=== PATIENT | female | born 2000 | race Caucasian/White ===

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

== ENCOUNTER 2021-02-01 16:49 | Emergency (ER) | payer SELFPAY ==
[2021-02-01 16:50] VITALS: PULSE 72; RESP 16; TEMP 36.7; O2SAT 100; BMI 38.6
--- NOTE | 2021-02-01 16:58 | ECG_ITS ---
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
[2021-02-01 17:33] LABS: Add Urine Microscopic? NO; Charge for UA Resulting for Rev
[2021-02-01 17:49] VITALS: BP 129/76; PULSE 69; RESP 18; O2SAT 100
[2021-02-01 17:50] LABS: Urine Appearance Clear (CLEAR); Urine Color Yellow (Yellow)
[2021-02-01] MEDS: iohexol 350 mg/mL 100 mL Btl IV (17:50)
[2021-02-01 17:51] LABS: Bilirubin Urine Neg (Negative); Blood Urine Neg (Negative); Glucose Urine UA Norm (Normal); Ketones Urine Negative (Negative); Leukocyte Esterase Urine Negative (Negative); Nitrate Urine Negative (Negative); Protein Urine Neg (Negative); Urobilinogen Urine Norm (Negative); pH Urine 7 (5-7)
[2021-02-01 17:54] LABS: Amphetamines Screen Urine Negative (Negative); Barbiturates Screen Urine Negative (Negative); Benzodiazepines Screen Urine Negative (Negative); Cocaine Screen Urine Negative (Negative); Opiate Screen Urine Negative (Negative); PCP Screen Urine Negative (Negative); THC Screen Urine Positive (Negative)
[2021-02-01 18:00] LABS: Basophils # 0.1 10^3/uL (0.0-0.1); Basophils % 0.5 %; Eosinophils # 0.1 10^3/uL (0.0-0.8); Eosinophils % 0.4 %; Hematocrit 37.2 % (37.0-47.0); Hemoglobin 11.5 g/dL (11.5-15.3); Lymphocytes # 2.1 10^3/uL (1.5-6.5); Lymphocytes % 15.6 %; Mean Corpuscular HGB Conc 30.9 g/dL (30.0-36.0); Mean Corpuscular Hemoglobin 27.4 pg (28.0-34.0); Mean Corpuscular Volume 88.6 fL (81-99); Mean Platelet Volume 10.3 fL (7.4-10.4); Monocytes # 0.9 10^3/uL (0.2-0.9); Monocytes % 6.7 %; Neutrophils # 10.11 10^3/uL (1.8-8.0); Neutrophils % 76.4 %; Nucleated Red Blood Cells % 0 %; Platelet Count 283 10^3/cmm (130-400); Red Cell Distribution Width 13.2 % (12.1-15.1); White Blood Count 13.2 10^3/uL (4.5-13.0)
[2021-02-01 18:02] VITALS: BP 128/78; PULSE 64; RESP 18; O2SAT 100
[2021-02-01 18:31] LABS: HCG, Serum Qual Negative (Negative)
[2021-02-01 18:40] VITALS: BP 137/77; PULSE 62; RESP 20; O2SAT 100
[2021-02-01 18:49] LABS: Alanine Aminotransferase 11 U/L (0-33); Albumin Level 3.7 g/dL (3.5-5.2); Alkaline Phosphatase 48 IU/L (35-105); Anion Gap 11.9 (5-19); Aspartate Amino Transferase 17 U/L (0-32); Blood Urea Nitrogen 8 mg/dL (6-20); Calcium 8.4 mg/dL (8.5-10.5); Carbon Dioxide 22 mmol/L (22-29); Chloride 107 mmol/L (98-107); Globulin 2.1 g/dL (1.3-4.6); Glomerular Filtration Rate 128.8 mL/min (90-130); Glucose 82 mg/dL (65-115); Osmolality Calculated 281 mOsm/kg (285-295); Potassium 3.9 mmol/L (3.5-5.1); Sodium 137 mmol/L (136-145); Total Bilirubin 0.6 mg/dL (0.15-1.2); Total Protein 5.8 g/dL (6.6-8.7)
[2021-02-01 18:50] LABS: Alcohol Level < 10 mg/dL (0-10)
--- NOTE | 2021-02-01 19:12 | ECG_ITS ---
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 Measurements Intervals [place] Rate: 62 P: -15 [place]: 130 QRS: 7 QRSD: 81 T: 14 QT: 393 QTc: 400 Interpretive Statements SINUS RHYTHM WITH OCCASIONAL SUPRAVENTRICULAR PREMATURE COMPLEXES and extreme sinus arrhythmia Compared to ECG 02/01/2021 17:08:20 Electronically Signed On 02-02-2021 20:02:08 CDT by Eliceo Plata M.D. [id number]
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
[2021-02-01 19:41] VITALS: BP 120/74; PULSE 79; RESP 18; O2SAT 100
--- NOTE | 2021-02-01 19:44 | PC.NURSE ---
cspine precautions removed per physician
[2021-02-01 20:25] VITALS: BP 112/72; PULSE 78; RESP 16; O2SAT 100
--- NOTE | 2021-02-02 15:46 | PC.SOCIAL ---
Spoke with cardiology clinic and provided patient information along with provider name and reason for referral. They will get patient scheduled and call patient with date and time.
--- NOTE | 2021-02-02 15:57 | PC.SOCIAL ---
Called Cardiology and provided information for ED referral for patient by Dr Berger for sinus arrhythmia. They will review and call patient.
--- NOTE | 2021-02-16 14:29 | DCPLANNER ---
flight manager called [facility] to confirm if an appointment had been scheduled for patient. flight manager spoke with Arsh, and was told that when the clinic called patient to schedule follow up appointment, that patient declined the appointment at this time due to no insurance. flight manager was told that patient was advised that the hospital had financial rep that patient could apply for, applications were mailed to patient. Patient stated that she would apply for the financial rep and if she was approved than patient would call heart care and will schedule an appointment.
== END 2021-02-01 20:15 | disposition home or self-care (01) ==
PROVIDERS: Emergency Provider Family Medicine
DX: S13.4XXA Sprain of ligaments of cervical spine, initial encounter (principal); S29.012A Strain of muscle and tendon of back wall of thorax, initial encounter; I49.8 Other specified cardiac arrhythmias; V89.2XXA Person injured in unspecified motor-vehicle accident, traffic, initial encounter
CPT/HCPCS: 70450; 71275; 72125; 74174; 80053; 80306; 80307; 81003; 84703; 85025; 93005; 99284; Q9967

== ENCOUNTER → 2021-02-18 15:21 | Outpatient (BNVA) | payer OTHER, SELFPAY | PROVIDERS: Visit Provider Nurse Practitioner Family | DX: J06.9 Acute upper respiratory infection, unspecified (principal); Z20.822 Contact with and (suspected) exposure to COVID-19 | CPT/HCPCS: 87635 ==

== ENCOUNTER → 2021-08-24 00:01 | Outpatient (BNVA) | payer OTHER, SELFPAY | PROVIDERS: Visit Provider Psychiatry & Neurology Psychiatry | DX: F33.1 Major depressive disorder, recurrent, moderate (principal); F41.1 Generalized anxiety disorder; Z79.899 Other long term (current) drug therapy; Z03.89 Encounter for observation for other suspected diseases and conditions ruled out | CPT/HCPCS: 80053; 80061; 83036; 84443; 85025 ==

== ENCOUNTER 2023-06-29 16:56 | Emergency (ER) | payer SELFPAY ==
--- NOTE | 2023-06-29 17:17 | ED_ITS ---
Documented by User: YG Quezada 06/29/23 20:36 HPI - Fever General: Chief Complaint: General Medical Stated Complaint: swollen throat Time Seen by Provider: 06/29/23 17:14 History of Present Illness: Patient is a 23-year-old female who presents to the emergency department for evaluation of a sore throat. Patient reports that her symptoms started yesterday and has continued to progress since onset. Patient currently rates her pain as a 7 out of 10 in severity that she describes as a sharp/stabbing sensation. Pain is exacerbated with eating and drinking. Patient also endorses bilateral ear pain. Admits to feeling congested but denies rhinorrhea. She denies current shortness of breath, drooling, throat swelling, painful tongue movements, cough, chest pain, palpitations, fever, chills, headache, or any other associated symptoms. No other complaints at this time. Associated symptoms: Reports nasal congestion; Deny abdominal pain, flank pain, chills, chest pain, diarrhea, dysuria, extremity pain, nausea or vomiting Review of Systems Const: Denies: fever(s) or chills Eyes: Denies: change in vision or blurry vision ENMT: Reports: throat pain, enlarged tonsils, ear or mastoid pain and nasal congestion; Denies: hoarseness, dental pain, ear discharge or nasal discharge Card: Denies: chest pain or palpitations Resp: Denies: productive cough, non-productive cough or wheezing GI: Denies: abdominal pain, nausea, vomiting, diarrhea or constipation : Denies: flank pain, difficulty voiding, dysuria or hematuria Musc: Denies: neck pain, back pain or extremity pain Skin/Breast: Denies: rash Physical Exam Const: COMMON NORMALS: no acute distress, patient oriented x3 and alert HENMT: COMMON NORMALS: normocephalic and atraumatic HEAD & SCALP: normocephalic and atraumatic OTHER: Posterior oropharynx is erythematous with mild tonsillar swelling and exudates noted bilaterally. Posterior oropharynx is patent. No evidence of retropharyngeal abscess or peritonsillar abscess. No evidence of Andrea's angina. Bilateral tympanic membranes pearly senior without evidence of effusion or hemotympanum. No evidence of otitis media or otitis externa. No evidence of mastoiditis bilaterally. Eye: COMMON NORMALS: Equal, round and reactive pupils present, EOMs intact bilaterally, conjunctivae normal and no scleral icterus CONJUNCTIVA: Yes conjunctivae normal PUPIL: Yes Equal, round and reactive pupils present Neck/C-Spine: COMMON NORMALS: full ROM Chest: COMMONS NORMALS: normal inspection of the chest Resp: COMMON NORMALS: normal respiratory effort, No retractions, No use of ac cessory muscles and clear to auscultation bilaterally AUSCULTATION: clear to auscultation bilaterally Cardio: COMMON NORMALS: regular rhythm, No gallops present (Cardio), No clicks present (Cardio), No murmurs present (Cardio) and No rub (Cardio) RATE: tachycardic RHYTHM: regular rhythm GI: COMMON NORMALS: Normal to inspection, nondistended, normoactive bowel sounds present, Soft to palpation and non-tender PALPATION: Yes Soft to palpation Neuro: COMMON NORMALS: patient oriented x3 SENSORIUM/ORIENTATION: Yes alert Skin: COMMON NORMALS: no rashes or lesions noted GENERAL SKIN EXAM: no rashes or lesions noted Course Vital Signs: Vital signs: Vital Signs Temperature 98.3 F 06/29/23 18:11 Pulse Rate 110 H 06/29/23 20:37 Respiratory Rate 18 06/29/23 18:11 Blood Pressure 120/78 06/29/23 20:37 Pulse Oximetry 97 06/29/23 20:37 Oxygen Delivery Me thod Room Air 06/29/23 20:30 MDM - Fever Medical Decision Making Patient is a 23-year-old female who presents to the emergency department for evaluation of a sore throat. On physical examination patient is nontoxic and in no acute distress. Patient is afebrile. Posterior oropharynx is erythematous with mild tonsillar swelling and exudates noted bilaterally. Posterior oropharynx is patent. No evidence of retropharyngeal abscess or peritonsillar abscess. No evidence of Andrea's angina. Bilateral tympanic membranes pearly senior without evidence of effusion or hemotympanum. No evidence of otitis media or otitis externa. No evidence of mastoiditis bilaterally. Rapid strep negative, culture currently pending. Given the patient's exam and increasing incidence of strep B I will treat for possible streptococcal infection. Patient was given a dose of viscous lidocaine in the emergency department. Patient stated improvement of symptoms after medication administration. See handout over generalized instructions. Increase oral hydration. A prescription amoxicillin was sent to her pharmacy be picked up. Take medication as prescribed. First dose given in the emergency department. Tylenol and Motrin as needed for fever and comfort. Call your primary care provider tomorrow with an update of your symptoms and schedule appointment for further management/evaluation. Return to the emergency department for any rapid or worsening symptoms to include but not limited to throat swelling, excessive drooling, difficulty breathing, difficulty swallowing, uncontrollable fevers, lightheadedness, dizziness, or as needed. Patient stated understanding of all discharge instructions was agreeable to the plan of care. Lab Data Laboratory Results Group A Strep Rapid Negative (Negative) 06/29/23 19:23 No radiology studies performed this visit Discharge Plan Discharge Patient Disposition: Home Clinical Impression: Acute pharyngitis Condition: Stable Prescriptions: New amoxicillin 500 mg capsule 500 mg PO BID 10 Days Qty: 20 0RF No Action fluoxetine 20 mg capsule 20 mg PO DAILY 30 Days Qty: 30 3RF ondansetron 8 mg tablet,disintegrating 8 mg PO Q8H 5 Days Qty: 15 0RF Discharge Orders: Discharge ED (Routine); Ordered 06/29/23 Ordered By: Campos Vela Patient Instructions: Pharyngitis (ED) Activity Restrictions/Additional Instructions: See handout over generalized instructions. Increase oral hydration. A prescription amoxicillin was sent to her pharmacy be picked up. Take medication as prescribed. First dose given in the emergency department. Tylenol and Motrin as needed for fever and comfort. Call your primary care provider tomorrow with an update of your symptoms and schedule appointment for further management/evaluation. Return to the emergency department for any rapid or worsening symptoms to include but not limited to throat swelling, excessive drooling, difficulty breathing, difficulty swallowing, uncontrollable fevers, lightheadedness, dizziness, or as needed. Coding Level of Care Code ED Mathematical Scientist for Chg Fwd Documented by User: Tyler Mike DO 06/29/23 22:21 HPI - Fever General: Chief Complaint: General Medical Stated Complaint: swollen throat Time Seen by Provider: 06/29/23 17:14 Course Vital Signs: Vital signs: Vital Signs Temperature 98.3 F 06/29/23 18:11 Pulse Rate 110 H 06/29/23 20:37 Respiratory Rate 18 06/29/23 18:11 Blood Pressure 120/78 06/29/23 20:37 Pulse Oximetry 97 06/29/23 20:37 Oxygen Delivery Me thod Room Air 06/29/23 20:30 MDM - Fever Medical Decision Making Patient is a 23-year-old female who presents to the emergency department for ben luation of a sore throat. On physical examination patient is nontoxic and in no acute distress. Patient is afebrile. Posterior oropharynx is erythematous with mild tonsillar swelling and exudates noted bilaterally. Posterior oropharynx is patent. No evidence of retropharyngeal abscess or peritonsillar abscess. No evidence of Andrea's angina. Bilateral tympanic membranes pearly senior without e vidence of effusion or hemotympanum. No evidence of otitis media or otitis externa. No evidence of mastoiditis bilaterally. Rapid strep negative, culture currently pending. Given the patient's exam and increasing incidence of strep B I will treat for possible streptococcal infection. Patient was given a dose of viscous lidocaine in the emergency department. Patient stated improvement of symptoms after medication administration. See handout over generalized instructions. Increase oral hydration. A prescription amoxicillin was sent to her pharmacy be picked up. Take medication as prescribed. First dose given in the emergency department. Tylenol and Motrin as needed for fever and comfort. Call your primary care provider tomorrow with an update of your symptoms and schedule appointment for further management/evaluation. Return to the emergency department for any rapid or worsening symptoms to include but not limited to throat swelling, excessive drooling, difficulty breathing, difficulty swallowing, uncontrollable fevers, lightheadedness, dizziness, or as needed. Patient stated understanding of all discharge instructions was agreeable to the plan of care. This patient was originally seen by Mr. Mirian PA-C.? I agree with his history, evaluation, and treatment. Lab Data Laboratory Results Group A Strep Rapid Negative (Negative) 06/29/23 19:23 Discharge Plan Discharge Patient Disposition: Home Clinical Impression: Acute pharyngitis Condition: Stable Prescriptions: New amoxicillin 500 mg capsule 500 mg PO BID 10 Days Qty: 20 0RF No Action fluoxetine 20 mg capsule 20 mg PO DAILY 30 Days Qty: 30 3RF ondansetron 8 mg tablet,disintegrating 8 mg PO Q8H 5 Days Qty: 15 0RF Discharge Orders: Discharge ED (Routine); Ordered 06/29/23 Ordered By: Campos Vela Patient Instructions: Pharyngitis (ED) Activity Restrictions/Additional Instructions: See handout over generalized instructions. Increase oral hydration. A prescription amoxicillin was sent to her pharmacy be picked up. Take medication as prescribed. First dose given in the emergency department. Tylenol and Motrin as needed for fever and comfort. Call your primary care provider tomorrow with an update of your symptoms and schedule appointment for further management/evaluation. Return to the emergency department for any rapid or worsening symptoms to include but not limited to throat swelling, excessive drooling, difficulty breathing, difficulty swallowing, uncontrollable fevers, lightheadedness, dizziness, or as needed. Coding Level of Care Code ED Mathematical Scientist for Shraddha Mckenzie
[2023-06-29 18:11] VITALS: BP 118/78; PULSE 125; RESP 18; TEMP 36.8; O2SAT 97; BMI 36.0
[2023-06-29 18:25] VITALS: BP 118/70; PULSE 104; O2SAT 100
[2023-06-29 18:46] VITALS: BP 116/80; PULSE 108; O2SAT 99
[2023-06-29] MEDS: lidocaine 2% viscous 15 mL UDC 5 ML MUCOUS MEM (19:19)
[2023-06-29 19:48] LABS: Rapid Strep A Test Negative (Negative)
[2023-06-29 20:30] VITALS: BP 95/67; PULSE 106; O2SAT 96
[2023-06-29 20:37] VITALS: BP 120/78; PULSE 110; O2SAT 97
== END 2023-06-29 20:41 | disposition home or self-care (01) ==
PROVIDERS: Emergency Provider Physician Assistant
DX: J02.9 Acute pharyngitis, unspecified (principal)
CPT/HCPCS: 87081; 87880; 99283

== ENCOUNTER 2024-11-01 20:59 | Emergency (ER) | payer MEDICAID, SELFPAY ==
[2024-11-01 21:03] VITALS: BP 139/95; PULSE 103; RESP 16; TEMP 36.8; O2SAT 100; BMI 45.5
[2024-11-01 21:53] LABS: Basophils # 0.1 10^3/uL (0.0-0.1); Basophils % 0.5 %; Eosinophils # 0.2 10^3/uL (0.0-0.8); Eosinophils % 1.1 %; Hematocrit 41.8 % (36-47); Lymphocytes # 3.5 10^3/uL (0.8-4.8); Lymphocytes % 24.9 %; Mean Corpuscular HGB Conc 32.8 g/dL (30-55); Mean Corpuscular Hemoglobin 30.1 pg (27-33); Mean Corpuscular Volume 91.9 fl (85-98); Mean Platelet Volume 9.5 fL (7.4-10.4); Monocytes % 7.2 %; Neutrophils # 9.12 10^3/uL (1.8-7.7); Neutrophils % 65.9 %; Nucleated Red Blood Cells % 0 %; Platelet Count 260 10^3/cmm (157-399); Red Blood Count 4.55 10^6/uL (3.85-5.65); Red Cell Distribution Width 11.9 % (12.1-15.1); White Blood Count 13.83 10^3/uL (3.29-11.43)
[2024-11-01 21:56] LABS: Bilirubin Urine Negative (Negative); Blood Urine Negative (Negative); Glucose Urine UA Negative (Normal); Ketones Urine Negative (Negative); Leukocyte Esterase Urine Negative (Negative); Nitrate Urine Negative (Negative); Protein Urine Negative (Negative); Specific Gravity, Urine 1.013 (1.005-1.030); Urine Appearance Clear (CLEAR); Urine Color Yellow (Yellow); pH Urine 7.5 (5-7)
[2024-11-01 21:58] LABS: Bacteria Urine Trace /hpf; RBC Urine 0-2 /hpf (0-2); Squamous Epithelial Cell Urine 0-5 /hpf (0-5); WBC Urine 0-5 /hpf (0-5)
[2024-11-01 22:11] LABS: Alanine Aminotransferase 11 U/L (0-33); Albumin Level 3.8 g/dL (3.5-5.2); Alkaline Phosphatase 51 U/L (35-105); Aspartate Amino Transferase 10 U/L (0-32); Blood Urea Nitrogen 14 mg/dL (6-20); Calcium 9.3 mg/dL (8.5-10.5); Carbon Dioxide 24 mmol/L (22-29); Chloride 106 mmol/L (98-107); Creatinine Clr Calc Pharmacy 148.4607; Glomerular Filtration Rate 103.7 mL/min (90-130); Glucose 93 mg/dL (65-115); Osmolality Calculated 292 mOsm/kg (285-295); Sodium 141 mmol/L (136-145); Total Bilirubin 0.7 mg/dL (0.15-1.2); Total Protein 6.8 g/dL (6.6-8.7)
[2024-11-01 22:23] VITALS: BP 113/80
[2024-11-01 22:30] VITALS: BP 136/89; PULSE 100; RESP 18; O2SAT 99
--- NOTE | 2024-11-01 22:54 | ED_ITS ---
HPI - Back Pain/Injury 2 General: Chief Complaint: Abdominal Pain Stated Complaint: sharp pain right flank into back Time Seen by Provider: 11/01/24 22:18 Source: patient Mode of arrival: ambulatory Limitations: no limitations History of Present Illness: Patient is a 24-year-old female presents to ED today with complaint of right- sided back pain. Patient states symptoms have been intermittent over the past 3 weeks. She states at some point it was affecting the left side of her back. She feels like pain is worse with certain movements. She states when pain comes on she can move herself in certain positions to alleviate the discomfort. She feels like pain starts in her right mid to lower back and then radiates down into her right buttock and sometimes around into her right groin. She is not having any urinary symptoms. She has not noticed any hematuria. In between episodes she is completely asymptomatic. Symptoms do not seem to be affected by eating. She is not complaining of any abdominal pain. Was recently prescribed gabapentin and valacyclovir for possible trigeminal neuralgia. MD elicited complaint: back pain Onset (ago): week(s) Timing: intermittent Severity: moderate Similar Symptoms Previously: No Location: right lower back Radiation: buttocks and other (groin) Exacerbating factors: movement Relieving factors: other (certain positions) Associated symptoms: Reports no associated symptoms; Deny abdominal pain, chills, change in bowel habits, dysuria, fatigue, fever(s), nausea, urinary urgency or vomiting Work related injury: No Related Data Previous Rx's ?Medication ?Instructions ?Recorded gabapentin 100 mg capsule 100 mg PO TID 10 days #30 ca ps 10/28/24 valacyclovir 1 gram tablet 1,000 mg PO Q8H 10 days #30 tabs 10/28/24 diclofenac sodium 50 mg 50 mg PO Q12H PRN pain #20 t abs 11/01/24 tablet,delayed release methocarbamol 500 mg tablet 1,000 mg (2 x 500 mg) PO Q 8H #30 11/01/24 tabs methylprednisolone 4 mg tablets in See Rx Instructions PO .COMPLEX 11/01/24 a dose pack (Medrol (Marlo)) #21 ea Allergies Allergy/AdvReac Type Severity Reaction Status Date / Time No Known Allergies Allergy Verified 10/28/24 08:33 Review of Systems 2 Const: Denies: fever(s), chills, body aches, fatigue or malaise Card: Denies: chest pain Resp: Denies: dyspnea GI: Denies: abdominal pain, nausea, vomiting, diarrhea or change in bowel habits : Denies: flank pain, difficulty voiding, dysuria, urinary frequency, urinary urgency or urinary hesitancy Musc: Reports: back pain; Denies: neck pain, extremity pain, extremity swelling, joint pain, joint swelling or joint redness Skin/Breast: Denies: rash Neuro: Denies: headache(s), numbness in extremities, weakness in extremities or sensory changes PFSH ED 2 PFSH: Social History Smoking and tobacco/nicotine status: current every day tobacco/nicotine user Physical Exam 2 Const: COMMON NORMALS: no acute distress, patient oriented x3, no limitations, alert and well nourished GENERAL APPEARANCE: cooperative NUTRITIONAL APPEARANCE: obese (BMI 45.5) ORIENTATION/CONSCIOUSNESS: Yes awake, Yes oriented to person, Yes oriented to place and Yes oriented to time Chest: COMMONS NORMALS: normal inspection of the chest and normal palpation of entire chest wall Resp: COMMON NORMALS: normal respiratory effort and clear to auscultation bilaterally AUSCULTATION: clear to auscultation bilaterally Cardio: COMMON NORMALS: regular rate and regular rhythm RATE: regular rate RHYTHM: regular rhythm GI: COMMON NORMALS: Normal to inspection, nondistended, normoactive bowel sounds present, Soft to palpation, non-tender, No hepatosplenomegaly present and no masses PALPATION: Yes Soft to palpation and Yes No hepatosplenomegaly present : COMMON NORMALS: Yes no CVA tenderness BLADDER/KIDNEY EXAM: Yes no CVA tenderness Back/Pelvis: COMMON NORMALS: no CVA tenderness, thoracic and lumbar spine normal to inspection and straight leg raise negative bilaterally THORACIC SPINE/UPPER BACK: No thoracic spinal tenderness and No paraspinal muscle tenderness LUMBAR SPINE/LOWER BACK: Yes paraspinal muscle tenderness and Yes straight leg raise negative bilaterally PELVIS: Yes sciatic notch tenderness on the right SACRUM: no tenderness COCCYX: no tenderness Extremity: COMMON NORMALS: normal to inspection, full ROM, capillary refill normal, no joint enlargement, no clubbing, cyanosis or edema, no calf tenderness and no pedal edema GENERAL: Yes normal exam except as noted Neuro: COMMON NORMALS: patient oriented x3, moves all extremities, no focal motor deficits, no sensory deficits noted and gait normal S ENSORIUM/ORIENTATION: Yes alert, Yes oriented to person, Yes oriented to place and Yes oriented to time Skin: COMMON NORMALS: no rashes or lesions noted GENERAL SKIN EXAM: no rashes or lesions noted Course 2 Vital Signs: Vital signs: Vital Signs Temperature 98.3 F 11/01/24 21:03 Pulse Rate 88 11/01/24 23:05 Respiratory Rate 18 11/01/24 23:05 Blood Pressure 128/55 11/01/24 23:05 Pulse Oximetry 100 11/01/24 23:05 Oxygen Delivery Me thod Room Air 11/01/24 21:03 MDM - Back Pain/Injury Medical Decision Making I suspect this is more musculoskeletal/lumbar radiculopathy. Patient's blood work and UA are completely unremarkable. Discussed treating with anti- inflammatories, steroids, muscle relaxers. Follow up with primary care next week if symptoms are not improving. Return to ED precautions discussed. Medical Records I reviewed the patient's medical records. Labs I reviewed the patient's lab results. 11/01/24 21:35 11/01/24 21:35 Laboratory Results WBC 13.83 10^3/uL (3.29-11.43) H 11/01/24 21:35 RBC 4.55 10^6/uL (3.85-5.65) 11/01/24 21:35 Hgb 13.70 g/dL (11.27-16.99) 11/01/24 21:35 Hct 41.8 % (36-47) 11/01/24 21:35 MCV 91.9 fl (85-98) 11/01/24 21:35 MCH 30.1 pg (27-33) 11/01/24 21:35 MCHC 32.8 g/dL (30-55) 11/01/24 21:35 RDW 11.9 % (12.1-15.1) L 11/01/24 21:35 Plt Count 260 10^3/cmm (157-399) 11/01/24 21:35 MPV 9.5 fL (7.4-10.4) 11/01/24 21:35 Neut % (Auto) 65.9 % 11/01/24 21:35 Lymph % (Auto) 24.9 % 11/01/24 21:35 [place] % (Auto) 7.2 % 11/01/24 21:35 Eos % (Auto) 1.1 % 11/01/24 21:35 Baso % (Auto) 0.5 % 11/01/24 21:35 Neut # (Auto) 9.12 10^3/uL (1.8-7.7) H 11/01/24 21:35 Lymph # (Auto) 3.5 10^3/uL (0.8-4.8) 11/01/24 21:35 [place] # (Auto) 1.0 10^3/uL (0.2-0.9) H 11/01/24 21:35 Eos # (Auto) 0.2 10^3/uL (0.0-0.8) 11/01/24 21:35 Baso # (Auto) 0.1 10^3/uL (0.0-0.1) 11/01/24 21:35 Nucleated RBC % (auto) 0 % 11/01/24 21: Nucleated RBCs # 0.0 /100WBC 11/01/24 21:35 Sodium 141 mmol/L (136-145) 11/01/24 21: Potassium 4.0 mmol/L (3.5-5.1) 11/01/24 21: Chloride 106 mmol/L (98-107) 11/01/24 21:35 Carbon Dioxide 24 mmol/L (22-29) 11/01/24 21:35 Anion Gap 15.0 (5-19) 11/01/24 21: BUN 14 mg/dL (6-20) 11/01/24 21:35 Creatinine 0.7 mg/dL (0.5-0.9) 11/01/24 21:35 GFR Calculation 103.7 mL/min (90-130) 11/01/24 21: Glucose 93 mg/dL (65-115) 11/01/24 21: Calculated Osmolality 292 mOsm/kg (285-295) 11/01/24 21:35 Calcium 9.3 mg/dL (8.5-10.5) 11/01/24 21:35 Total Bilirubin 0.7 mg/dL (0.15-1.2) 11/01/24 21:35 AST 10 U/L (0-32) 11/01/24 21:35 ALT 11 U/L (0-33) 11/01/24 21:35 Alkaline Phosphatase 51 U/L (35-105) 11/01/24 21:35 Total Protein 6.8 g/dL (6.6-8.7) 11/01/24 21: Albumin 3.8 g/dL (3.5-5.2) 11/01/24 21: Globulin 3.0 g/dL (1.3-4.6) 11/01/24 21:35 Urine Color Yellow (Yellow) 11/01/24 21: Urine Appearance Clear (CLEAR) 11/01/24 21: Urine pH 7.5 (5-7) 11/01/24: Ur Specific [place] 1.013 (1.005-1.030) 11/01/24 21: Urine Protein Negative (Negative) 11/01/24 21: Urine Glucose (UA) Negative (Normal) 11/01/24: Urine Ketones Negative (Negative) 11/01/24 21: Urine Blood Negative (Negative) 11/01/24 21: Urine Nitrate Negative (Negative) 11/01/24 21: Urine Bilirubin Negative (Negative) 11/01/24: Urine Urobilinogen 1.0 mg/dL (Negative) 11/01/24 21: Ur Leukocyte Esterase Negative (Negative) 11/01/24 21:30 Urine RBC 0-2 /hpf (0-2) 11/01/24 21: Urine WBC 0-5 /hpf (0-5) 11/01/24 21: Ur Squamous Epith Cells 0-5 /hpf (0-5) 11/01/24 21: Amorphous Sediment Not Reportable 11/01/24 21: Urine Bacteria Trace /hpf (NONE) 11/01/24: Hyaline Casts 0.40 /lpf 11/01/24 21: No radiology studies performed this visit Discharge Plan Discharge Patient Disposition: Home Clinical Impression: Acute right-sided back pain Qualifiers: Back pain location: low back pain Sciatica presence: without sciatica Qualified Code(s): M54.50 - Low back pain, unspecified Condition: Stable Prescriptions: New methocarbamol 500 mg tablet 1,000 mg PO Q8H Qty: 30 0RF diclofenac sodium 50 mg tablet,delayed release (DR/EC) 50 mg PO Q12H PRN (Reason: pain) Qty: 20 0RF methylprednisolone [Medrol (Marlo)] 4 mg tablets,dose pack See Rx Instructions .ROUTE .COMPLEX Qty: 21 0RF Rx Instructions: orally per package directions Continued gabapentin 100 mg capsule 100 mg PO TID 10 Days Qty: 30 0RF Discontinued prednisone 20 mg tablet 20 mg PO DAILY 5 Days Qty: 5 0RF No Action valacyclovir 1 gram tablet 1,000 mg PO Q8H 10 Days Qty: 30 0RF Discharge Orders: Discharge ED (Routine); Ordered 11/01/24 Ordered By: Marilou Vanegas Activity Restrictions/Additional Instructions: As we discussed, please schedule an appoint with your primary care provider on Sunday for further evaluation of symptoms if they do not seem to be improving with medications prescribed today. You may return to the emergency department for worsening or uncontrollable pain, repetitive episodes of vomiting, fevers, severe abdominal pain, or any other concerns you may have. I hope you begin to feel better soon. Print Language: Uzbek Coding Level of Care Code ED Heel Stainer for Shraddha Mckenzie
[2024-11-01] MEDS: ketorolac 60 mg/2 mL INJ IM (23:01)
[2024-11-01] MEDS: dexamethasone 10 mg/mL INJ IM (23:02)
[2024-11-01] MEDS: orphenadrine 30 mg/mL Inj 2 mL 60 MG IM (23:03)
[2024-11-01 23:05] VITALS: BP 128/55; PULSE 88; RESP 18; O2SAT 100
== END 2024-11-01 23:13 | disposition home or self-care (01) ==
PROVIDERS: Emergency Medicine; Emergency Provider Physician Assistant
DX: M54.50 Low back pain, unspecified (principal); Z72.0 Tobacco use
CPT/HCPCS: 36415; 80053; 81001; 85025; 96372; 99284; J1100; J1885; J2360

== ENCOUNTER 2025-05-21 16:48 | Emergency (ER) | payer MEDICAID, SELFPAY ==
[2025-05-21 16:56] VITALS: BP 121/69; PULSE 109; RESP 16; O2SAT 98
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
[2025-05-21 18:25] VITALS: BP 116/88; PULSE 99; O2SAT 97
[2025-05-21 18:51] LABS: Hematocrit 41.5 % (36-47); Hemoglobin 13.50 g/dL (11.27-16.99); Mean Corpuscular HGB Conc 32.5 g/dL (30-55); Mean Corpuscular Hemoglobin 28.7 pg (27-33); Mean Corpuscular Volume 88.3 fl (85-98); Nucleated Red Blood Cells % 0 %; Platelet Count 337 10^3/cmm (157-399); Red Blood Count 4.70 10^6/uL (3.85-5.65); White Blood Count 9.86 10^3/uL (3.29-11.43)
[2025-05-21 19:04] LABS: Lactic Sepsis W/Reflex 0.7 mmol/L (0.5-2.2)
[2025-05-21 19:22] LABS: Alanine Aminotransferase 12 U/L (0-33); Albumin Level 4.0 g/dL (3.5-5.2); Alkaline Phosphatase 47 U/L (35-105); Anion Gap 16.7 (5-19); Aspartate Amino Transferase 12 U/L (0-32); Blood Urea Nitrogen 11 mg/dL (6-20); Calcium 9.4 mg/dL (8.5-10.5); Carbon Dioxide 19 mmol/L (22-29); Chloride 108 mmol/L (98-107); Creatinine Clr Calc Pharmacy 209.5469; Globulin 3.4 g/dL (1.3-4.6); Glucose 85 mg/dL (65-115); Osmolality Calculated 289 mOsm/kg (285-295); Potassium 3.7 mmol/L (3.5-5.1); Sodium 140 mmol/L (136-145); Total Protein 7.4 g/dL (6.6-8.7)
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
== END 2025-05-21 19:53 | disposition home or self-care (01) ==
PROVIDERS: Emergency Provider Emergency Medicine
DX: S99.912A Unspecified injury of left ankle, initial encounter (principal); V89.2XXA Person injured in unspecified motor-vehicle accident, traffic, initial encounter; R10.31 Right lower quadrant pain; Z32.00 Encounter for pregnancy test, result unknown; Z72.0 Tobacco use
CPT/HCPCS: 36415; 73610; 76817; 80053; 83605; 84702; 85025; 99284

== ENCOUNTER 2025-05-26 10:27 | Outpatient (CLI) | payer MEDICAID, SELFPAY | END 2025-05-26 10:28 | disposition home or self-care (01) | PROVIDERS: Visit Provider Family Medicine | DX: O20.0 Threatened abortion (principal) | CPT/HCPCS: 84702 ==